=== PATIENT | female | born 1985 | race Caucasian/White ===

== ENCOUNTER → 2021-11-30 | Day surgery (SDC) | payer OTHER ==
[~2021-11-30] VITALS: Ht 167.6 cm; Wt 54.0 kg
[~2021-11-30] MED LIST: LEVOCETIRIZINE D5 MG PO; SERTRALINE20 MG/1 ML PO; VITAMIN B122500 MCG PO; VITAMIN D250 MC1 PO
[2021-11-30 10:22] LABS: BASOPHIL 0.5 % (0-2); EOSINOPHIL 1.1 % (0-5); HCT 40.7 % (37.0-47.0); HGB 13.4 g/dl (12.5-16.0); LYMPHOCYTE 20.7 % (15-48); MCH 28.6 pg (25.0-31.0); MCHC 32.9 g/dL (32.0-36.0); MCV 86.8 fL (78.0-100.0); MPV 11.1 fL (6.0-9.5); NEUTROPHIL 70.5 % (41-80); NRBC 0; PLT 232 K/uL (150-400); RBC 4.69 M/uL (4.20-5.40); RDW 13.9 % (11.5-14.0); WBC 8.8 K/uL (4.0-10.5)
== END | disposition home or self-care (01) ==
LOC: FAS 08:58
PROVIDERS: Oral & Maxillofacial Surgery
DX: K02.9 Dental caries, unspecified (principal); K04.7 Periapical abscess without sinus; F17.200 Nicotine dependence, unspecified, uncomplicated; Z88.0 Allergy status to penicillin; F41.9 Anxiety disorder, unspecified; F32.A Depression, unspecified
CPT/HCPCS: D7140; D7210; 36415; 85025; J1100; J1885; J2250; J2405; J2704; J3010; J7120